=== PATIENT | female | born 1950 | race American Indian/Alaskan Native ===

== ENCOUNTER 2018-10-30 18:11 | Inpatient (IN) | payer MEDICARE ==
--- NOTE | 2018-10-30 18:27 | Emergency Department Report ---
Chief Complaint: Back Pain/Injury Stated Complaint: SERVERE LOWER BACK PAIN Time Seen by Provider: 10/30/18 18:22 - HPI History of Present Illness: This is a 68 y.o. female that presents with low back pain since this morning. Patient states she tried to get out of bed and unable. She applied warm heating pads to lower back and took ibuprofen which increased pain. PMH CAD, HTN, DM, glaucoma, & HLD Patient reports having bladder tightened with mess placement on 10/06/2018. Denies injury, urinary urgency, frequency, dysuria, or abdominal pain. - Exam Vital Signs: Vital Signs 10/30/18 18:22 Temperature 97.5 F L Pulse Rate 62 Respiratory 22 Rate Blood Pressure 137/63 O2 Sat by Pulse 95 Oximetry MSE screening note: Focused history and physical exam performed. Due to findings the following was ordered: UA and XR of L-spine ED Disposition for MSE Condition: Stable
--- NOTE | 2018-10-30 19:28 | XRay Report ---
PROCEDURE: XR SPINE LUMBOSACRAL 2-3V TECHNIQUE: Lumbar spine radiographs, three views. HISTORY: low back pain COMPARISONS: None . FINDINGS: Alignment: Normal . Vertebral body heights/Disk spaces: There is disc space narrowing at L5-S1 with small marginal verteb ral body osteophyte. Fracture(s): None . Facets: Normal . Bone mineralization: Normal . IMPRESSION: Degenerative disc disease at L5-S1 This document is electronically signed by Mino Oconnor MD., October 30 2018 07:27:22 PM ET
[2018-10-30] MEDS ORDERED: TORADOL IM ONE (20:46)
[2018-10-30] MEDS ORDERED: ZOFRAN IM ONE (22:08)
[2018-10-30] MEDS ORDERED: MORPHINE IM ONE (22:08)
[2018-10-30] MEDS ORDERED: DECADRON IM ONE (23:49)
[2018-10-30] MEDS ORDERED: VALIUM PO ONE (23:50)
--- NOTE | 2018-10-30 23:59 | Emergency Department Report ---
<FLOR WALTERS - Last Filed: 10/31/18 01:02> ED Back Pain/Injury HPI - General Chief Complaint: Back Pain/Injury Stated Complaint: SERVERE LOWER BACK PAIN Time Seen by Provider: 10/30/18 18:22 - Related Data Home Medications Medication Instructions Recorded Confirmed Last Taken Amlodipine Besylate [Norvasc] 10 mg PO DAILY 10/31/18 10/31/18 Unknown Aspirin 81 mg PO DAILY 10/31/18 10/31/18 Unknown Atorvastatin Calcium [Lipitor] 40 mg PO QHS 10/31/18 10/31/18 Unknown Calcium Carbonate [Calcium] 600 mg PO TID 10/31/18 10/31/18 Unknown Capsaicin 0.075% [Zostrix Hp 1 applicatio TP TID 10/31/18 10/31/18 Unknown 0.075%] Docusate Sodium [Colace] 100 mg PO BID 10/31/18 10/31/18 Unknown Ergocalciferol [Vitamin D2] 1 tab PO QMONTH 10/31/18 10/31/18 10/20/18 Gabapentin [Neurontin] 100 mg PO BID 10/31/18 10/31/18 Unknown Latanoprost 0.005% [Xalatan 0.005%] 1 drop OP QPM 10/31/18 10/31/18 Unknown Losartan Potassium 100 mg PO DAILY 10/31/18 10/31/18 Unknown Nitroglycerin [Nitrostat] 0.4 mg SL Q5M PRN 10/31/18 10/31/18 Unknown Timolol 0.5% [Timoptic] 1 drops OP BID 10/31/18 10/31/18 Unknown glipiZIDE [Glipizide] 2.5 mg PO BID 10/31/18 10/31/18 Unknown metFORMIN [Glucophage] 500 mg PO BID 10/31/18 10/31/18 Unknown Allergies Allergy/AdvReac Type Severity Reaction Status Date / Time lisinopril Allergy Unknown Verified 10/30/18 18:17 ED Past Medical Hx - Medications Home Medications: Home Medications Medication Instructions Recorded Confirmed Last Taken Type Amlodipine Besylate [Norvasc] 10 mg PO DAILY 10/31/18 10/31/18 Unknown History Aspirin 81 mg PO DAILY 10/31/18 10/31/18 Unknown History Atorvastatin Calcium [Lipitor] 40 mg PO QHS 10/31/18 10/31/18 Unknown History Calcium Carbonate [Calcium] 600 mg PO TID 10/31/18 10/31/18 Unknown History Capsaicin 0.075% [Zostrix Hp 1 applicatio TP TID 10/31/18 10/31/18 Unknown History 0.075%] Docusate Sodium [Colace] 100 mg PO BID 10/31/18 10/31/18 Unknown History Ergocalciferol [Vitamin D2] 1 tab PO QMONTH 10/31/18 10/31/18 10/20/18 History Gabapentin [Neurontin] 100 mg PO BID 10/31/18 10/31/18 Unknown History Latanoprost 0.005% [Xalatan 0.005%] 1 drop OP QPM 10/31/18 10/31/18 Unknown History Losartan Potassium 100 mg PO DAILY 10/31/18 10/31/18 Unknown History Nitroglycerin [Nitrostat] 0.4 mg SL Q5M PRN 10/31/18 10/31/18 Unknown History Timolol 0.5% [Timoptic] 1 drops OP BID 10/31/18 10/31/18 Unknown History glipiZIDE [Glipizide] 2.5 mg PO BID 10/31/18 10/31/18 Unknown History metFORMIN [Glucophage] 500 mg PO BID 10/31/18 10/31/18 Unknown History ED Medical Decision Making - Medical Decision Making I evaluated Mrs. Ambrose. She has history of diabetic neuropathy, diabetes, hypertension. Recent [employer] surgery at [facility] for prolapse of her pelvic organs. She is followed by [facility]. No previous history of back problems or back injury. Thursday morning she awakened with severe lower back pain worse with movement of both legs. She straightened out either leg severe pain. Differential diagnosis includes lumbar degenerative disc disease versus spinal stenosis in the lumbar region. I recommended aggressive IV pain control. Also recommended admission if pain does not resolve. ED Disposition Clinical Impression: Lumbar back pain Degenerative disc disease Qualifiers: Spinal region: lumbar Qualified Code(s): M51.36 - Other intervertebral disc degeneration, lumbar region Disposition: OP ADMIT IP TO THIS HOSP Condition: Stable Instructions: Degenerative Disc Disease (ED), Lumbar Radiculopathy (ED), Lumbar Disc Herniation (ED) Referrals: PRIMARY CARE, [Primary Care Provider] - 3-5 Days <TERRANCE ALSTON - Last Filed: 10/31/18 06:27> ED Back Pain/Injury HPI - General Source: patient Limitations: No Limitations - History of Present Illness Initial Comments: This is a 68 y.o. female that presents with low back pain since this morning. Patient states she tried to get out of bed and unable. She applied warm heating pads to lower back and took ibuprofen which increased pain. PMH CAD, HTN, DM, glaucoma, & HLD Patient reports having bladder tightened with mess placement on 10/06/2018. Denies injury, urinary urgency, frequency, dysuria, or abdominal pain. orthopedic surgery paged for consult, Complaint: back pain Onset/Timin -: days(s), unknown (chronic low back pain for past 10 years with arthralgia ) Similar Symptoms Previously: Yes Place: home Radiation: left leg, right leg Severity: moderate Severity scale (0 -10): 5 Quality: sharp Consistency: constant Improves With: other (position) Worsens With: movement, sitting upright, walking Context: turning/twisting Associated Symptoms: difficulty walking. denies: numbness, difficulty urinating, diaphoresis, incontinence, fever/chills, constipation ED Review of Systems ROS: Stated complaint: SERVERE LOWER BACK PAIN Other details as noted in HPI Constitutional: denies: chills, fever Eyes: denies: eye pain, eye discharge, vision change ENT: denies: ear pain, throat pain Respiratory: denies: cough, shortness of breath, wheezing Cardiovascular: denies: chest pain, palpitations Endocrine: no symptoms reported Gastrointestinal: denies: abdominal pain, nausea, diarrhea Genitourinary: denies: urgency, dysuria, discharge Musculoskeletal: back pain, arthralgia, myalgia Skin: denies: rash, lesions Neurological: denies: headache, weakness, paresthesias Psychiatric: denies: anxiety, depression Hematological/Lymphatic: denies: easy bleeding, easy bruising ED Past Medical Hx - Past Medical History Previous Medical History?: Yes Hx Hypertension: Yes Hx Diabetes: Yes Additional medical history: CAD, hyperlipidema, glacuma, - Surgical History Past Surgical History?: Yes Additional Surgical History: hysterectomy, cataracts, stent in heart, - Social History Smoking Status: Never Smoker Substance Use Type: None ED Physical Exam - General Limitations: No Limitations General appearance: alert, in no apparent distress - Head Head exam: Present: atraumatic, normocephalic - Eye Eye exam: Present: normal appearance, PERRL, EOMI Pupils: Present: normal accommodation - ENT ENT exam: Present: mucous membranes moist - Neck Neck exam: Present: normal inspection, full ROM. Absent: tenderness, meningismus, lymphadenopathy - Expanded Neck Exam Expanded Neck exam: Absent: tenderness (no posterior vertebral point tenderness ), midline deformity, anterior neck swelling, thyroid mass, carotid bruit, tracheal deviation - Respiratory Respiratory exam: Present: normal lung sounds bilaterally. Absent: respiratory distress, wheezes, stridor, chest wall tenderness - Cardiovascular Cardiovascular Exam: Present: regular rate, normal rhythm, normal heart sounds. Absent: systolic murmur, diastolic murmur, rubs, gallop - GI/Abdominal GI/Abdominal exam: Present: soft, normal bowel sounds. Absent: tenderness, bruit, hernia - Rectal Rectal exam: Present: deferred - Extremities Exam Extremities exam: Present: normal inspection, full ROM, normal capillary refill. Absent: tenderness, pedal edema, joint swelling, calf tenderness - Back Exam Back exam: Present: tenderness, muscle spasm, paraspinal tenderness. Absent: CVA tenderness (R), CVA tenderness (L), vertebral tenderness, rash noted - Expanded Back Exam Expanded Back exam: Absent: saddle anesthesia Back exam: Sciatic Notch Tenderness: Left, Right, Positive Straight Leg Raise: Left, Right - Neurological Exam Neurological exam: Present: alert, oriented X3, CN II-XII intact, normal gait, reflexes normal. Absent: motor sensory deficit - Expanded Neurological Exam Expanded Patient oriented to: Present: person, place, time Speech: Present: fluid speech Cranial nerves: EOM's Intact: Normal, Gag Reflex: Normal, Tongue Deviation: Normal, Nystagmus: Normal, Facial Sensation: Normal, Facial Palsy with Forehead Movement: Normal, Facial Palsy without Forehead Movement: Normal Cerebellar function: Finger to Nose: Normal, Heel to Ramos: Normal Upper motor neuron: Roderick Neglect: Normal, Pronator Drift: Normal, Babinski Sign: Normal, Sensory Extinction: Normal Sensory exam: Upper Extremity Light Touch: Normal, Upper Extremity Pin Prick: Normal, Upper Extremity Temperature: Normal, UE 2 Point Discrimination: Normal, Lower Extremity Light Touch: Normal, Lower Extremity Pin Prick: Normal, Lower Extremity Temperature: Normal, LE 2 Point Discrimination: Normal Motor strength exam: RUE: 5, LUE: 5, RLE: 5, LLE: 5 DTR: bicep (R): 2+, bicep (L): 2+, ankle (R): 2+, ankle (L): 2+ Best Eye Response (Wesley): (4) open spontaneously Best Motor Response (Mary): (6) obeys commands Best Verbal Response (Mary): (5) oriented Mary Total: 15 - Psychiatric Psychiatric exam: Present: normal affect, normal mood - Skin Skin exam: Present: warm, dry, intact, normal color. Absent: rash ED Course Vital Signs 10/30/18 10/30/18 10/30/18 18:22 21:09 21:39 Temperature 97.5 F L Pulse Rate 62 Respiratory 22 20 20 Rate Blood Pressure 137/63 Blood Pressure [Right] O2 Sat by Pulse 95 Oximetry 10/30/18 10/30/18 10/31/18 22:37 23:07 01:19 Temperature 100.5 F H Pulse Rate 83 Respiratory 20 20 20 Rate Blood Pressure Blood Pressure 144/72 [Right] O2 Sat by Pulse 96 Oximetry 10/31/18 10/31/18 10/31/18 01:34 01:35 01:40 Temperature Pulse Rate Respiratory 20 20 20 Rate Blood Pressure Blood Pressure [Right] O2 Sat by Pulse 96 Oximetry 10/31/18 10/31/18 10/31/18 02:04 02:35 03:54 Temperature Pulse Rate Respiratory 20 20 20 Rate Blood Pressure Blood Pressure [Right] O2 Sat by Pulse Oximetry 10/31/18 04:24 Temperature Pulse Rate Respiratory 20 Rate Blood Pressure Blood Pressure [Right] O2 Sat by Pulse Oximetry - Reevaluation(s) Reevaluation #1: pain reduced to 8/10 , still too painful to ambulate, pt has ketorlac 30mg, and morphine total of 10mg morphine pain reduced from 20/20 to 8 /10 move is improved but still unable to ambulate, CT : moderate L5-S1 Stenosis , exam: bilat LE radiculpathy. 10/31/18 03:50 10/31/18 03:53 ED Medical Decision Making - Lab Data Result diagrams: 10/31/18 01:15 10/31/18 01:15 - Radiology Data Radiology results: report reviewed, image reviewed Findings [facility] [address] [place] [address] XRay Report Signed Patient: SALEEM AMBROSE MR#: [id number] : 1950 Acct:[id number] Age/Sex: 68 / F ADM Date: 10/30/18 Loc: ED Attending Dr: Ordering Physician: DELANO HAMMONDS Date of Service: 10/30/18 Procedure(s): XR spine lumbosacral 2-3V Accession Number(s): [id number] cc: DELANO HAMMONDS Fluoro Time In Minutes: PROCEDURE: XR SPINE LUMBOSACRAL 2-3V TECHNIQUE: Lumbar spine radiographs, three views. HISTORY: low back pain COMPARISONS: None . FINDINGS: Alignment: Normal . Vertebral body heights/Disk spaces: There is disc space narrowing at L5-S1 with small marginal vertebral body osteophyte. Fracture(s): None . Facets: Normal . Bone mineralization: Normal . IMPRESSION: Degenerative disc disease at L5-S1 This document is electronically signed by Mino Oconnor MD., October 30 2018 07:27:22 PM ET Transcribed By: [facility] Dictated By: SADIQ OCONNOR MD Electronically Authenticated By: SADIQ OCONNOR MD Signed Date/Time: 10/30/181927 DD/ 18 TD/TT: 10/30/181918 - Medical Decision Making lumbar xrays : Degenerative disc disease, pt states pain is 7/10 pos stright leg bilat , there is no weakness, pt states to painful to ambulate ua: meds to this point: ketorlac, mophine, zofran, there is improvement with pain medications this is not caudate equine. Consulted ED attending recommendation continue agressive pain control admit if symptoms not improved, 0552: pt advises pain is 3/10 at this, pain increases to 8/10 with attempted ambulation there is no saddle numbess no loss or decrease in bowel or bladder function, CT Lumbar: Bulging L5-S1, Degenerative Disc Disease, mild to moderate Lumabar Stenosis, plan: admit to hospitalist for pain control, consulted ortho for disc herniation , discussed treatment plan indepth with patient and , both verbalized agreement and understanding of same. 0553: pt care hand off to hospitalist , pt will be admitted to same at this time, pt verbalizes agreement and understanding. Critical care attestation.: If time is entered above; I have spent that time in minutes in the direct care of this critically ill patient, excluding procedure time. ED Disposition Is pt being admited?: Yes Does the pt Need Aspirin: No Time of Disposition: 06:26
[2018-10-31] MEDS ORDERED: BENADRYL IM ONE (00:49)
[2018-10-31] MEDS ORDERED: MORPHINE IV ONE ×2 (01:04→03:47)
[2018-10-31] MEDS ORDERED: ZOFRAN IV ONE ×2 (01:04→03:47)
[2018-10-31] MEDS ORDERED: NORCO 5/325 PO ONE (01:05)
[2018-10-31 01:29] LABS: Basophils % (Auto) 0.3 % (0.0-1.8); Hematocrit 36.6 % (30.3-42.9); Hemoglobin 11.7 gm/dl (10.1-14.3); Lymphocytes # (Auto) 0.8 K/mm3 (1.2-5.4); Lymphocytes % (Auto) 9.5 % (13.4-35.0); Mean Corpuscular HGB Conc 32 % (30-34); Mean Corpuscular Volume 85 fl (79-97); Monocytes # (Auto) 0.1 K/mm3 (0.0-0.8); Monocytes % (Auto) 1.1 % (0.0-7.3); Platelet Count 273 K/mm3 (140-440); Red Blood Count 4.32 M/mm3 (3.65-5.03)
[2018-10-31 02:14] LABS: Albumin 4.3 g/dL (3.9-5); BUN/Creatinine Ratio 15; Blood Urea Nitrogen 15 mg/dL (7-17); Calcium 9.7 mg/dL (8.4-10.2); Hemolysis Index 112
--- NOTE | 2018-10-31 02:27 | Cat Scan Report ---
CT LUMBAR SPINE WO CON CLINICAL INDICATION: Female, 68 years of age. lumbar pain unable to ambulate COMPARISON: Plain films of the lumbar spine from October 30, 2018. TECHNIQUE: Contiguous axial images were obtained. This CT exam was performed using one or more of th e following dose reduction techniques: automated exposure control, adjustment of the mA and/or kV acc ording to patient size, or use of iterative reconstruction technique. Additional sagittal and coronal reformatted images were obtained. FINDINGS: Lumbar vertebral body heights preserved. Mild loss of disc at L4-L5 level. Severe loss of d isc height L5-S1 level with endplate osteophyte. Minimal retrolisthesis of L5 on S1 by 2 to 3 mm. T12-L1 through L2-L3 levels, canal and foramina are patent. L3-L4 level, mild broad-based disc bulge and hypertrophy of ligamentum flavum. Mild facet changes. Mi ld canal stenosis. Mild foraminal narrowing. L4-L5 level, mild facet changes. Mild broad-based disc bulge. Mild canal stenosis. Knro-zh-vjwbhylb b ilateral foraminal narrowing. L5-S1 level, mild broad-based disc bulge with endplate osteophyte. Mild facet changes. Mild/moderate canal stenosis. Moderate to severe bilateral foraminal narrowing. Paraspinal musculature is grossly unremarkable. IMPRESSION: 1. Moderate focal degenerative changes L5-S1 level. Siip-ml-uomcoivo canal stenosis at that level and moderate to severe foraminal narrowing. There is impingement upon the exiting L5 nerve roots which c ould explain bilateral radiculopathy. 2. Mild canal stenosis and [id number]-zh-xvbkdbrk bilateral foraminal narrowing L4-L5 level. 3. Canal and foramina are patent throughout the remainder of the lumbar spine. This document is electronically signed by Keiry Chin DO., October 31 2018 02:25:47 AM ET
[2018-10-31 02:35] LABS: Alanine Aminotransferase 15 units/L (7-56)
[2018-10-31] MEDS ORDERED: ZOFRAN IV PRN (05:08)
--- NOTE | 2018-10-31 05:44 | History and Physical Report ---
History of Present Illness Date of examination: 10/31/18 Date of admission: 10/31/2018 Chief complaint: severe back pain History of present illness: Patient is a 68-year-old female with PMHx of hypertension, CAD status post stent placement 1, hyperlipidemia, DM2, vitamin D deficiency and obesity who presents to the ER with complaints of severe back pain started today around noon. Patient states that the pain started suddenly she was unable to move her legs, she felt a sharp pain on her lower back and she was unable to walk. Patient states that she managed to get in bed, but she couldn't move in the bed. Patient denies any heavy lifting, denies any recent fall, denies any injuries to the back, she denies numbness, denies paresthesias, she decided to come to the ER for evaluation of her back pain. Patient reports that she had a recent hysterectomy in 10/05/2018 and a bladder mesh. Patient had a CT scan of the lumbar spine and the ER, which showed moderate focal changes L5 through S1 mild to moderate canal stenosis at that level and moderate to severe foraminal narrowing, there is impingement upon the existing L5 nerve roots. Mild canal Stenosis and Mild to Moderate Bilateral Foraminal Narrowing L4- L5 Level. Patient was initially treated in the ER, her pain improved, she will be admitted for additional evaluation, orthopedic and neuro will be consulted for her back pain. Past History Past Medical History: CAD, diabetes, hypertension, hyperlipidemia, other (obesity) Past Surgical History: hysterectomy, Other (bladder mesh) Family history: no significant family history Medications and Allergies Allergies Allergy/AdvReac Type Severity Reaction Status Date / Time lisinopril Allergy Unknown Verified 10/30/18 18:17 Home Medications Medication Instructions Recorded Confirmed Last Taken Type Amlodipine Besylate [Norvasc] 10 mg PO DAILY 10/31/18 10/31/18 Unknown History Aspirin 81 mg PO DAILY 10/31/18 10/31/18 Unknown History Atorvastatin Calcium [Lipitor] 40 mg PO QHS 10/31/18 10/31/18 Unknown History Calcium Carbonate [Calcium] 600 mg PO TID 10/31/18 10/31/18 Unknown History Capsaicin 0.075% [Zostrix Hp 1 applicatio TP TID 10/31/18 10/31/18 Unknown History 0.075%] Docusate Sodium [Colace] 100 mg PO BID 10/31/18 10/31/18 Unknown History Ergocalciferol [Vitamin D2] 1 tab PO QMONTH 10/31/18 10/31/18 10/20/18 History Gabapentin [Neurontin] 100 mg PO BID 10/31/18 10/31/18 Unknown History Latanoprost 0.005% [Xalatan 0.005%] 1 drop OU QPM 10/31/18 10/31/18 Unknown History Losartan Potassium 100 mg PO DAILY 10/31/18 10/31/18 Unknown History Nitroglycerin [Nitrostat] 0.4 mg SL Q5M PRN 10/31/18 10/31/18 Unknown History Timolol 0.5% [Timoptic] 1 drops OS BID 10/31/18 10/31/18 Unknown History glipiZIDE [Glipizide] 2.5 mg PO BID 10/31/18 10/31/18 Unknown History metFORMIN [Glucophage] 500 mg PO BID 10/31/18 10/31/18 Unknown History Active Meds: Active Medications Acetaminophen (Tylenol) 650 mg PO Q4H PRN PRN Reason: Pain MILD(1-3)/Fever >100.5/PENG Acetaminophen/Hydrocodone Bitart (Kaplan 5/325) 1 each PO Q6H PRN PRN Reason: Pain, Moderate (4-6) Ondansetron HCl (Zofran) 4 mg IV Q8H PRN PRN Reason: Nausea And Vomiting Sodium Chloride (Sodium Chloride Flush Syringe 10 Ml) 10 ml IV BID RU Sodium Chloride (Sodium Chloride Flush Syringe 10 Ml) 10 ml IV PRN PRN PRN Reason: LINE FLUSH Exam - Constitutional Vitals: Temp Pulse Resp BP Pulse Ox 100.5 F H 83 20 144/72 96 10/31/18 01:19 10/31/18 01:19 10/31/18 04:24 10/31/18 01:19 10/31/18 01:40 General appearance: Present: no acute distress - EENT Eyes: Present: EOM intact ENT: hearing intact - Neck Neck: Present: normal ROM - Respiratory Respiratory effort: normal Respiratory: bilateral: CTA - Cardiovascular Heart Sounds: Present: S1 & S2 - Extremities Extremities: no ischemia, No edema Peripheral Pulses: within normal limits - Abdominal General gastrointestinal: Present: non-tender, non-distended, other (obese) - Integumentary Integumentary: Present: warm, dry - Musculoskeletal Musculoskeletal: generalized weakness (lower extremities) - Psychiatric Psychiatric: appropriate mood/affect - Neurologic Neurologic: moves all extremities Results - Labs CBC & Chem 7: 10/31/18 01:15 10/31/18 01:15 Labs: Laboratory Last Values WBC 8.4 K/mm3 (4.5-11.0) 10/31/18 01:15 RBC 4.32 M/mm3 (3.65-5.03) 10/31/18 01:15 Hgb 11.7 gm/dl (10.1-14.3) 10/31/18 01:15 Hct 36.6 % (30.3-42.9) 10/31/18 01:15 MCV 85 fl (79-97) 10/31/18 01:15 MCH 27 pg (28-32) L 10/31/18 01:15 MCHC 32 % (30-34) 10/31/18 01:15 RDW 16.0 % (13.2-15.2) H 10/31/18 01:15 Plt Count 273 K/mm3 (140-440) 10/31/18 01:15 Lymph % (Auto) 9.5 % (13.4-35.0) L 10/31/18 01:15 Saline % (Auto) 1.1 % (0.0-7.3) 10/31/18 01:15 Eos % (Auto) 0.0 % (0.0-4.3) 10/31/18 01:15 Baso % (Auto) 0.3 % (0.0-1.8) 10/31/18 01:15 Lymph # 0.8 K/mm3 (1.2-5.4) L 10/31/18 01:15 Saline # 0.1 K/mm3 (0.0-0.8) 10/31/18 01:15 Eos # 0.0 K/mm3 (0.0-0.4) 10/31/18 01:15 Baso # 0.0 K/mm3 (0.0-0.1) 10/31/18 01:15 Seg Neutrophils % 89.1 % (40.0-70.0) H 10/31/18 01:15 Seg Neutrophils # 7.5 K/mm3 (1.8-7.7) 10/31/18 01:15 Sodium 139 mmol/L (137-145) 10/31/18 01:15 Potassium 5.0 mmol/L (3.6-5.0) 10/31/18 01:15 Chloride 97.7 mmol/L (98-107) L 10/31/18 01:15 Carbon Dioxide 18 mmol/L (22-30) L 10/31/18 01:15 Anion Gap 28 mmol/L 10/31/18 01:15 BUN 15 mg/dL (7-17) 10/31/18 01:15 Creatinine 1.0 mg/dL (0.7-1.2) 10/31/18 01:15 Estimated GFR > 60 ml/min 10/31/18 01:15 BUN/Creatinine Ratio 15 % 10/31/18 01:15 Glucose 250 mg/dL (65-100) H 10/31/18 01:15 Calcium 9.7 mg/dL (8.4-10.2) 10/31/18 01:15 Total Bilirubin 0.70 mg/dL (0.1-1.2) 10/31/18 01:15 AST 23 units/L (5-40) 10/31/18 01:15 ALT 15 units/L (7-56) 10/31/18 01:15 Alkaline Phosphatase 81 units/L (35-129) 10/31/18 01:15 Total Protein 8.2 g/dL (6.3-8.2) 10/31/18 01:15 Albumin 4.3 g/dL (3.9-5) 10/31/18 01:15 Albumin/Globulin Ratio 1.1 % 10/31/18 01:15 Assessment and Plan Assessment and plan: 1. Moderate focal extension into his changes L5-S1 2. Mild to moderate bilateral foraminal narrowing L4-L5 3. Intractable back pain with radiculopathy (likely due to 12) 4. Hypertension 5. CAD s/p stent placement 1 6. Hyperlipidemia 7. DM type II 8. vitamin D deficiency 9. Obesity Plan: Patient is admitted for intractable back pain Continue pain control Insulin per sliding scale Resume home meds Consult PT/OT to eval Consult/for evaluation Further plan per hospital course Plan of care was discussed with patient, voiced understanding Patient's condition and plan of care discussed with Advance Directives: Yes VTE prophylaxis?: Chemical Plan of care discussed with patient/family: Yes
[2018-10-31 06:02] LABS: Bacteria,Urine 2+ /HPF (Negative); Bilirubin,Urine NEG (Negative); Blood,Urine MOD (Negative); Color,Urine Amber (Yellow); Hyaline Casts,Urine 7 /LPF; Mucus,Urine 3+ /HPF; Urobilinogen,Urine < 2.0 mg/dL (<2.0)
[2018-10-31 06:04] LABS: Protein,Urine >500 mg/dL (Negative)
[2018-10-31] MEDS ORDERED: ROCEPHIN/NS 1 GM/50 ML 1 GM/50 ML BAG IV ONE ×2 (06:29→06:56)
[2018-10-31] MEDS ORDERED: NITROSTAT SL PRN (07:17)
[2018-10-31] MEDS ORDERED: D50W (25GM) Syringe IV PRN (07:21)
[2018-10-31] MEDS ORDERED: NON-FORMULARY (Calcium Carbonate [Calcium] 600 MG) PO SCH (08:00)
[2018-10-31] MEDS ORDERED: NON-FORMULARY (Losartan Potassium [Losartan Potassium] 100 MG) PO SCH (10:00)
[2018-10-31] MEDS ORDERED: NEURONTIN PO SCH ×2 (10:00→14:00)
[2018-10-31] MEDS ORDERED: GLUCOTROL PO SCH (10:00)
[2018-10-31] MEDS: HumaLOG SUB-Q SCH ×4 (10:19→21:56)
--- NOTE | 2018-10-31 12:14 | Event Note ---
Date: 10/31/18 patient seen and examined presented with back pain, follow PT eval and ortho recommendation
[2018-10-31] MEDS: NORCO 5/325 PO PRN (14:22)
[2018-10-31] MEDS: CALCIUM CARBONATE PO SCH ×2 (14:28→23:34)
[2018-10-31] MEDS: ZOSTRIX HP TP SCH ×2 (14:29→23:37)
[2018-10-31] MEDS: GLUCOPHAGE PO SCH ×2 (14:29→17:50)
[2018-10-31] MEDS: NORVASC PO SCH (14:30)
[2018-10-31] MEDS: BABY ASPIRIN PO SCH (14:30)
[2018-10-31] MEDS: GLUCOTROL PO SCH ×2 (14:30→17:51)
[2018-10-31] MEDS: COLACE PO SCH ×2 (14:30→21:48)
[2018-10-31] MEDS: COZAAR PO SCH (14:30)
[2018-10-31] MEDS: SODIUM CHLORIDE FLUSH SYRINGE 10 ML IV SCH ×2 (14:30→21:51)
[2018-10-31] MEDS: TIMOPTIC OS SCH ×2 (14:31→23:37)
[2018-10-31] MEDS: FLEXERIL PO PRN (17:36)
[2018-10-31] MEDS: TYLENOL PO PRN (21:49)
[2018-10-31] MEDS: LIDODERM 5% TD SCH (22:06)
[2018-11-01] MEDS: NEURONTIN PO SCH ×4 (00:26→22:41)
[2018-11-01] MEDS: FLEXERIL PO PRN ×3 (02:15→20:07)
[2018-11-01] MEDS: NORCO 5/325 PO PRN ×4 (02:15→17:37)
[2018-11-01 06:20] LABS: Bilirubin,Urine NEG (Negative); Blood,Urine MOD (Negative); Color,Urine Yellow (Yellow); Mucus,Urine FEW /HPF; Urobilinogen,Urine < 2.0 mg/dL (<2.0)
[2018-11-01] MEDS: CALCIUM CARBONATE PO SCH ×3 (08:40→22:37)
[2018-11-01] MEDS: GLUCOPHAGE PO SCH ×2 (08:41→17:44)
[2018-11-01] MEDS: ZOSTRIX HP TP SCH ×3 (08:42→22:39)
[2018-11-01] MEDS: HumaLOG SUB-Q SCH ×5 (08:43→22:42)
[2018-11-01] MEDS: GLUCOTROL PO SCH ×2 (08:51→17:44)
[2018-11-01] MEDS: COZAAR PO SCH (09:23)
[2018-11-01] MEDS: NORVASC PO SCH (09:24)
[2018-11-01] MEDS: COLACE PO SCH ×2 (09:24→22:39)
[2018-11-01] MEDS: TIMOPTIC OS SCH ×2 (09:24→22:38)
[2018-11-01] MEDS: LIDODERM 5% TD SCH (09:26)
[2018-11-01] MEDS: SODIUM CHLORIDE FLUSH SYRINGE 10 ML IV SCH ×2 (09:26→22:40)
[2018-11-01] MEDS: BABY ASPIRIN PO SCH (09:26)
--- NOTE | 2018-11-01 16:37 | Progress Note ---
Assessment and Plan 1. Moderate focal degenerative changes L5-S1 2. Moderate to severe bilateral foraminal narrowing L4-L5 3. Intractable back pain with radiculopathy (likely due to impingement L5 nerveroot ) 4. Hypertension 5. CAD s/p stent placement 1 6. Hyperlipidemia 7. DM type II 8. vitamin D deficiency 9. Obesity Plan: Patient is admitted for intractable back pain Continue pain control with lidocaine patch/lortab as needed/flexiril Insulin per sliding scale Resumec home meds Consulted PT/OT to eval -pending Consulted ortho for evaluation - will see the patient tomorrow Further plan per hospital course Plan of care was discussed with patient, voiced understanding Brief history: Patient is a 68-year-old female with PMHx of hypertension, CAD status post stent placement 1, hyperlipidemia, DM2, vitamin D deficiency and obesity who presents to the ER with complaints of severe back pain. Patient had a CT scan of the lumbar spine and the ER, which showed moderate focal changes L5 through S1 mild to moderate canal stenosis at that level and moderate to severe foraminal narrowing, there is impingement upon the existing L5 nerve roots. Patient was initially treated in the ER, she was admitted for additional evaluation, orthopedic/PT consulted for her back pain. Radiology: CT Lumber spine w/o contrast: 1. Moderate focal degenerative changes L5-S1 level. Nzck-en-pnoibpmw canal stenosis at that level and moderate to severe foraminal narrowing. There is impingement upon the exiting L5 nerve roots which could explain bilateral radic ulopathy. 2. Mild canal stenosis and vlag-au-fsebiscn bilateral foraminal narrowing L4-L5 level. 3. Canal and foramina are patent throughout the remainder of the lumbar spine. Lumbosacral spine xry: Degenerative disc disease at L5-S1 Subjective Date of service: 11/01/18 Interval history: Patient seen and examined continue to c/o severe back pain and unable to move from bed PT eval and ortho eval pending Objective - Exam Narrative Exam: General appearance: Present: no acute distress - EENT Eyes: Present: EOM intact ENT: hearing intact - Neck Neck: Present: normal ROM - Respiratory Respiratory effort: normal Respiratory: bilateral: CTA - Cardiovascular Heart Sounds: Present: S1 & S2 - Extremities Extremities: no ischemia, No edema Peripheral Pulses: within normal limits - Abdominal General gastrointestinal: Present: non-tender, non-distended, other (obese) - Integumentary Integumentary: Present: warm, dry - Musculoskeletal Musculoskeletal: generalized weakness (b/l lower extremities) - Psychiatric Psychiatric: appropriate mood/affect - Neurologic Neurologic: limited lower extremities movement due to severe back pain - Constitutional Vitals: Vital Signs - 12hr 11/01/18 11/01/18 11/01/18 07:37 09:00 09:23 Temperature 98.7 F Pulse Rate 79 79 Respiratory 20 Rate Respiratory 20 Rate [Back] Blood Pressure 160/83 160/83 O2 Sat by Pulse 85 Oximetry 11/01/18 11/01/18 11/01/18 09:24 10:00 13:20 Temperature 99.4 F Pulse Rate 76 76 Respiratory 20 20 Rate Respiratory Rate [Back] Blood Pressure 160/83 119/55 O2 Sat by Pulse 90 Oximetry 11/01/18 11/01/18 13:21 14:48 Temperature Pulse Rate 78 Respiratory 20 Rate Respiratory Rate [Back] Blood Pressure O2 Sat by Pulse 91 Oximetry - Labs CBC & Chem 7: 10/31/18 01:15 10/31/18 01:15 Labs: Abnormal lab results 10/31/18 11/01/18 11/01/18 Range/Units 21:57 06:00 11:47 POC Glucose 138 H 201 H (70-105) Ur Specific [place] 1.038 H (1.003-1.030) Urine WBC (Auto) 7.0 H (0.0-6.0) /HPF
[2018-11-01] MEDS: LATANOPROST 0.005% OU SCH ×2 (17:39→19:43)
[2018-11-01] MEDS: TYLENOL PO PRN (20:07)
[2018-11-02] MEDS: NORCO 5/325 PO PRN ×2 (00:56→08:08)
[2018-11-02] MEDS: NEURONTIN PO SCH ×3 (05:33→22:00)
[2018-11-02] MEDS: TYLENOL PO PRN ×3 (05:34→21:59)
[2018-11-02] MEDS: FLEXERIL PO PRN (05:34)
[2018-11-02] MEDS: GLUCOTROL PO SCH ×2 (08:09→19:17)
[2018-11-02] MEDS: GLUCOPHAGE PO SCH ×2 (08:09→19:19)
[2018-11-02] MEDS: HumaLOG SUB-Q SCH ×4 (08:09→22:01)
[2018-11-02] MEDS: CALCIUM CARBONATE PO SCH ×3 (08:10→21:00)
[2018-11-02] MEDS: ZOSTRIX HP TP SCH ×3 (08:58→21:02)
[2018-11-02] MEDS: COZAAR PO SCH (10:18)
[2018-11-02] MEDS: NORVASC PO SCH (10:18)
[2018-11-02] MEDS: LIDODERM 5% TD SCH (10:29)
[2018-11-02] MEDS: TIMOPTIC OS SCH ×2 (10:30→22:47)
[2018-11-02] MEDS: COLACE PO SCH ×2 (10:30→22:00)
[2018-11-02] MEDS: BABY ASPIRIN PO SCH (10:30)
[2018-11-02] MEDS: SODIUM CHLORIDE FLUSH SYRINGE 10 ML IV SCH ×2 (10:31→22:01)
--- NOTE | 2018-11-02 12:01 | Progress Note ---
Assessment and Plan 1. Moderate focal degenerative changes L5-S1 2. Moderate to severe bilateral foraminal narrowing L4-L5 3. Intractable back pain with radiculopathy (likely due to impingement L5 nerveroot ) 4. Hypertension 5. CAD s/p stent placement 1 6. Hyperlipidemia 7. DM type II 8. vitamin D deficiency 9. Obesity Plan: Patient is admitted for intractable back pain Continue pain control with lidocaine patch/lortab as needed/flexiril Insulin per sliding scale, Resumed home meds Consulted PT/OT to eval -pending Consulted ortho for evaluation - recommended PT for heat, U/S and massage treatments, back brace, muscle relaxants and pain meds Plan of care was discussed with patient, voiced understanding Brief history: Patient is a 68-year-old female with PMHx of hypertension, CAD status post stent placement 1, hyperlipidemia, DM2, vitamin D deficiency and obesity who presents to the ER with complaints of severe back pain. Patient had a CT scan of the lumbar spine and the ER, which showed moderate focal changes L5 through S1 mild to moderate canal stenosis at that level and moderate to severe foraminal narrowing, there is impingement upon the existing L5 nerve roots. Patient was initially treated in the ER, she was admitted for additional evaluation, orthopedic/PT consulted for her back pain. Radiology: CT Lumber spine w/o contrast: 1. Moderate focal degenerative changes L5-S1 level. Sjzj-co-rlfqvtlm canal stenosis at that level and moderate to severe foraminal narrowing. There is impingement upon the exiting L5 nerve roots which could explain bilateral radiculopathy. 2. Mild canal stenosis and dnzn-cd-ouafcndy bilateral foraminal narrowing L4-L5 level. 3. Canal and foramina are patent throughout the remainder of the lumbar spine. Lumbosacral spine xry: Degenerative disc disease at L5-S1 Subjective Date of service: 11/02/18 Interval history: Patient seen and examined continue to c/o severe back pain and unable to move from bed PT eval pending Objective - Exam Narrative Exam: General appearance: Present: no acute distress - EENT Eyes: Present: EOM intact ENT: hearing intact - Neck Neck: Present: normal ROM - Respiratory Respiratory effort: normal Respiratory: bilateral: CTA - Cardiovascular Heart Sounds: Present: S1 & S2 - Extremities Extremities: no ischemia, No edema Peripheral Pulses: within normal limits - Abdominal General gastrointestinal: Present: non-tender, non-distended, other (obese) - Integumentary Integumentary: Present: warm, dry - Musculoskeletal Musculoskeletal: generalized weakness (b/l lower extremities) - Psychiatric Psychiatric: appropriate mood/affect - Neurologic Neurologic: limited lower extremities movement due to severe back pain - Constitutional Vitals: Vital Signs - 12hr 11/02/18 11/02/18 11/02/18 01:57 07:39 10:18 Temperature 98.5 F 98.0 F Pulse Rate 66 70 70 Respiratory 20 20 Rate Blood Pressure 117/65 112/49 112/49 O2 Sat by Pulse 94 92 Oximetry - Labs CBC & Chem 7: 10/31/18 01:15 10/31/18 01:15 Labs: Abnormal lab results 11/01/18 11/01/18 11/02/18 Range/Units 17:49 21:29 07:12 POC Glucose 129 H 145 H 176 H (70-105)
--- NOTE | 2018-11-02 14:07 | Consultation ---
History of Present Illness - [facility] Consult date: 11/02/18 Consult reason: low back pain History of present illness: 68 y/o female with c/o severe low back pain denies injury states started gradually and became worse over time, denies radicular symptoms... Past History Past Medical History: CAD, diabetes, hypertension, hyperlipidemia, other (obesity) Past Surgical History: hysterectomy, Other (bladder mesh) Family history: no significant family history Medications and Allergies Allergies Allergy/AdvReac Type Severity Reaction Status Date / Time lisinopril Allergy Unknown Verified 10/30/18 18:17 Home Medications Medication Instructions Recorded Confirmed Last Taken Type Amlodipine Besylate [Norvasc] 10 mg PO DAILY 10/31/18 10/31/18 Unknown History Aspirin 81 mg PO DAILY 10/31/18 10/31/18 Unknown History Atorvastatin Calcium [Lipitor] 40 mg PO QHS 10/31/18 10/31/18 Unknown History Calcium Carbonate [Calcium] 600 mg PO TID 10/31/18 10/31/18 Unknown History Capsaicin 0.075% [Zostrix Hp 1 applicatio TP TID 10/31/18 10/31/18 Unknown History 0.075%] Docusate Sodium [Colace CAP] 100 mg PO BID 10/31/18 10/31/18 Unknown History Ergocalciferol [Vitamin D2] 1 tab PO QMONTH 10/31/18 10/31/18 10/20/18 History Latanoprost 0.005% 1 drop OU QPM 10/31/18 10/31/18 Unknown History Losartan Potassium 100 mg PO DAILY 10/31/18 10/31/18 Unknown History Nitroglycerin [Nitrostat] 0.4 mg SL Q5M PRN 10/31/18 10/31/18 Unknown History Timolol 0.5% [Timoptic] 1 drops OS BID 10/31/18 10/31/18 Unknown History glipiZIDE [Glipizide] 2.5 mg PO BID 10/31/18 10/31/18 Unknown History metFORMIN [Glucophage] 500 mg PO BID 10/31/18 10/31/18 Unknown History Cyclobenzaprine [Flexeril 10 MG 10 mg PO Q8H PRN #20 tablet 11/05/18 Unknown Rx TAB] Gabapentin [Neurontin] 600 mg PO Q8HR #30 capsule 11/05/18 Unknown Rx Lidocaine [Lidocare] 1 each TP DAILY PRN #14 adh..patch 11/05/18 Unknown Rx oxyCODONE /ACETAMINOPHEN [Percocet 1 tab PO Q4H PRN #14 tablet 11/05/18 Unknown Rx 5/325 mg] Active Meds: Active Medications Acetaminophen (Tylenol) 650 mg PO Q4H PRN PRN Reason: Pain MILD(1-3)/Fever >100.5/PENG Last Admin: 11/02/18 13:12 Dose: 650 mg Documented by: Acetaminophen/Hydrocodone Bitart (Dexter 5/325) 2 each PO Q6H PRN PRN Reason: Pain, Moderate (4-6) Last Admin: 11/02/18 08:08 Dose: 2 each Documented by: Amlodipine Besylate (Norvasc) 10 mg PO DAILY [facility] Last Admin: 11/02/18 10:18 Dose: Not Given Documented by: Aspirin (Baby Aspirin) 81 mg PO DAILY [facility] Last Admin: 11/02/18 10:30 Dose: 81 mg Documented by: Atorvastatin Calcium (Lipitor) 40 mg PO QHS [facility] Last Admin: 11/01/18 22:38 Dose: 40 mg Documented by: Calcium Carbonate/Glycine (Calcium Carbonate) 648 mg PO TID [facility] Last Admin: 11/02/18 13:11 Dose: 648 mg Documented by: Capsaicin (Zostrix Hp) 1 applic TP TID [facility] Last Admin: 11/02/18 13:15 Dose: 1 applic Documented by: Cyclobenzaprine HCl (Flexeril) 10 mg PO Q8H PRN PRN Reason: Muscle Spasm Last Admin: 11/02/18 05:34 Dose: 10 mg Documented by: Dextrose (D50w (25gm) Syringe) 50 ml IV PRN PRN PRN Reason: Hypoglycemia Docusate Sodium (Colace) 100 mg PO BID [facility] Last Admin: 11/02/18 10:30 Dose: 100 mg Documented by: Ergocalciferol (Vitamin D2) 50,000 unit PO QMONTH [facility] Gabapentin (Neurontin) 300 mg PO Q8HR [facility] Last Admin: 11/02/18 13:15 Dose: 300 mg Documented by: Glipizide (Glucotrol) 2.5 mg PO BIDDIAB [facility] Last Admin: 11/02/18 08:09 Dose: 2.5 mg Documented by: Levofloxacin/Dextrose (Levaquin 750mg/150ml) 750 mg in 150 mls @ 100 mls/hr IV Q24HR [facility]; Protocol Insulin Human Lispro (Humalog) 0 unit SUB-Q ACHS [facility]; Protocol Last Admin: 11/02/18 13:11 Dose: Not Given Documented by: Latanoprost (Latanoprost 0.005%) 1 drops OU QPM [facility] Last Admin: 11/01/18 19:43 Dose: Not Given Documented by: Lidocaine (Lidoderm 5%) 1 each TD QDAY [facility] Last Admin: 11/02/18 10:29 Dose: 1 each Documented by: Losartan Potassium (Cozaar) 100 mg PO QDAY [facility] Last Admin: 11/02/18 10:18 Dose: Not Given Documented by: Metformin HCl (Glucophage) 500 mg PO BIDDIAB [facility] Last Admin: 11/02/18 08:09 Dose: 500 mg Documented by: Nitroglycerin (Nitrostat) 0.4 mg SL Q5M PRN PRN Reason: Chest Pain Ondansetron HCl (Zofran) 4 mg IV Q8H PRN PRN Reason: Nausea And Vomiting Oxycodone/Acetaminophen (Percocet 5/325) 1 tab PO Q4H PRN PRN Reason: Pain, Moderate (4-6) Sodium Chloride (Sodium Chloride Flush Syringe 10 Ml) 10 ml IV BID [facility] Last Admin: 11/02/18 10:31 Dose: 10 ml Documented by: Sodium Chloride (Sodium Chloride Flush Syringe 10 Ml) 10 ml IV PRN PRN PRN Reason: LINE FLUSH Timolol Maleate (Timoptic) 1 drops OS BID [facility] Last Admin: 11/02/18 10:30 Dose: 1 drops Documented by: Tizanidine HCl (Zanaflex) 8 mg PO Q8H [facility] Physical Examination - Physical exam Narrative exam: On physical examination significant musculoskeletal findings were placed to the spine and lower extremities at the lumbar spine patient is noted to have tenderness across the lower lumbar segment with spasms present there is also decreased active range of motion especially flexion and lateral rotation straight leg raise was negative deep tendon reflexes were equal and strength was [address] scan done of the lumbar spine was reviewed by me and show evidence of moderate degenerative disc disease and facet arthropathy at multiple levels there is a mild central canal stenosis Assessment and Plan Low back pain recommend - PT for heat,U/S and massage treatments back brace, muscle relaxants and pain meds
[2018-11-02] MEDS: LEVAQUIN 750MG/150ML 750 MG/150 ML BAG IV SCH (16:07)
[2018-11-02] MEDS: ZANAFLEX PO SCH (16:08)
[2018-11-02] MEDS: SODIUM CHLORIDE FLUSH SYRINGE 10 ML IV PRN (16:08)
[2018-11-02 16:52] LABS: Bacteria,Urine 1+ /HPF (Negative); Bilirubin,Urine NEG (Negative); Blood,Urine MOD (Negative); Color,Urine Amber (Yellow); Mucus,Urine 1+ /HPF; Sperm,Urine FEW /HPF (NP); Urobilinogen,Urine < 2.0 mg/dL (<2.0)
[2018-11-02] MEDS: PERCOCET 5/325 PO PRN (17:13)
[2018-11-02] MEDS: LATANOPROST 0.005% OU SCH (19:16)
[2018-11-03] MEDS: ZANAFLEX PO SCH ×3 (00:38→18:00)
[2018-11-03] MEDS: PERCOCET 5/325 PO PRN ×2 (00:59→09:06)
[2018-11-03] MEDS: NEURONTIN PO SCH ×3 (06:30→21:43)
[2018-11-03] MEDS: HumaLOG SUB-Q SCH ×4 (09:04→21:51)
[2018-11-03] MEDS: LIDODERM 5% TD SCH (09:05)
[2018-11-03] MEDS: GLUCOTROL PO SCH ×2 (09:06→17:58)
[2018-11-03] MEDS: BABY ASPIRIN PO SCH (09:06)
[2018-11-03] MEDS: COLACE PO SCH ×2 (09:06→21:44)
[2018-11-03] MEDS: GLUCOPHAGE PO SCH ×2 (09:07→17:58)
[2018-11-03] MEDS: ZOSTRIX HP TP SCH ×3 (09:07→20:17)
[2018-11-03] MEDS: CALCIUM CARBONATE PO SCH ×3 (09:07→20:17)
[2018-11-03] MEDS: TIMOPTIC OS SCH ×2 (09:08→21:50)
[2018-11-03] MEDS: COZAAR PO SCH (09:16)
[2018-11-03] MEDS: NORVASC PO SCH (09:17)
[2018-11-03] MEDS: SODIUM CHLORIDE FLUSH SYRINGE 10 ML IV SCH ×2 (09:19→21:43)
--- NOTE | 2018-11-03 12:25 | Progress Note ---
Assessment and Plan 1. Moderate focal degenerative changes L5-S1 2. Moderate to severe bilateral foraminal narrowing L4-L5 3. Intractable back pain with radiculopathy (likely due to impingement L5 nerveroot ) 4. Hypertension 5. CAD s/p stent placement 1 6. Hyperlipidemia 7. DM type II 8. vitamin D deficiency 9. Obesity Plan: Patient is admitted for intractable back pain Continue pain control with lidocaine patch/lortab as needed/flexiril Insulin per sliding scale, Resumed home meds Consulted PT/OT to eval -pending Consulted ortho for evaluation - recommended PT for heat, U/S and massage treatments, back brace, muscle relaxants and pain meds Plan of care was discussed with patient, voiced understanding Discharge pending on PT recommendation Brief history: Patient is a 68-year-old female with PMHx of hypertension, CAD status post stent placement 1, hyperlipidemia, DM2, vitamin D deficiency and obesity who presents to the ER with complaints of severe back pain. Patient had a CT scan of the lumbar spine and the ER, which showed moderate focal changes L5 through S1 mild to moderate canal stenosis at that level and moderate to severe foraminal narrowing, there is impingement upon the existing L5 nerve roots. Patient was initially treated in the ER, she was admitted for additional evaluation, orthopedic/PT consulted for her back pain. Radiology: CT Lumber spine w/o contrast: 1. Moderate focal degenerative changes L5-S1 level. Zawr-ix-gcdfpfqi canal stenosis at that level and moderate to severe foraminal narrowing. There is impingement upon the exiting L5 nerve roots which could explain bilateral radiculopathy. 2. Mild canal stenosis and ppgu-yp-kycmicij bilateral foraminal narrowing L4-L5 level. 3. Canal and foramina are patent throughout the remainder of the lumbar spine. Lumbosacral spine xry: Degenerative disc disease at L5-S1 Subjective Date of service: 11/03/18 Interval history: Patient seen and examined continue to c/o severe back pain and unable to move from bed PT eval pending as she is unable to participate due to pain Objective - Exam Narrative Exam: General appearance: Present: no acute distress - EENT Eyes: Present: EOM intact ENT: hearing intact - Neck Neck: Present: normal ROM - Respiratory Respiratory effort: normal Respiratory: bilateral: CTA - Cardiovascular Heart Sounds: Present: S1 & S2 - Extremities Extremities: no ischemia, No edema Peripheral Pulses: within normal limits - Abdominal General gastrointestinal: Present: non-tender, non-distended, other (obese) - Integumentary Integumentary: Present: warm, dry - Musculoskeletal Musculoskeletal: generalized weakness (b/l lower extremities) - Psychiatric Psychiatric: appropriate mood/affect - Neurologic Neurologic: limited lower extremities movement due to severe back pain - Constitutional Vitals: Vital Signs - 12hr 11/03/18 11/03/18 11/03/18 00:57 00:59 01:59 Temperature 98.3 F Pulse Rate 65 Respiratory 18 18 16 Rate Blood Pressure 103/58 O2 Sat by Pulse 95 Oximetry 11/03/18 11/03/18 11/03/18 02:26 02:32 02:33 Temperature 98.6 F Pulse Rate 47 L Respiratory 20 Rate Blood Pressure 82/42 80/40 O2 Sat by Pulse 94 Oximetry 11/03/18 11/03/18 11/03/18 07:40 09:16 10:00 Temperature 99.0 F Pulse Rate 55 L 55 L Respiratory 18 Rate Blood Pressure 102/47 102/47 O2 Sat by Pulse 92 92 Oximetry - Labs CBC & Chem 7: 10/31/18 01:15 10/31/18 01:15 Labs: Abnormal lab results 11/02/18 11/03/18 Range/Units 16:00 11:23 POC Glucose 151 H (70-105) Ur Specific [place] 1.039 H (1.003-1.030) Urine WBC (Auto) 7.0 H (0.0-6.0) /HPF
[2018-11-03] MEDS: SODIUM CHLORIDE FLUSH SYRINGE 10 ML IV PRN (16:36)
[2018-11-03] MEDS: LEVAQUIN 750MG/150ML 750 MG/150 ML BAG IV SCH (16:36)
[2018-11-03] MEDS: LATANOPROST 0.005% OU SCH (18:08)
[2018-11-03] MEDS: TYLENOL PO PRN (19:58)
[2018-11-03] MEDS: NORCO 5/325 PO PRN (21:46)
[2018-11-04] MEDS: ZANAFLEX PO SCH ×4 (01:12→23:30)
[2018-11-04] MEDS: NEURONTIN PO SCH ×3 (05:16→21:16)
[2018-11-04] MEDS: HumaLOG SUB-Q SCH ×4 (08:07→23:39)
[2018-11-04] MEDS: NORVASC PO SCH (10:35)
[2018-11-04] MEDS: LIDODERM 5% TD SCH (10:35)
[2018-11-04] MEDS: COLACE PO SCH ×2 (10:36→21:17)
[2018-11-04] MEDS: COZAAR PO SCH (10:36)
[2018-11-04] MEDS: PERCOCET 5/325 PO PRN ×2 (10:36→15:33)
[2018-11-04] MEDS: BABY ASPIRIN PO SCH (10:36)
[2018-11-04] MEDS: ZOSTRIX HP TP SCH ×3 (10:37→20:55)
[2018-11-04] MEDS: TIMOPTIC OS SCH ×2 (10:37→21:15)
[2018-11-04] MEDS: CALCIUM CARBONATE PO SCH ×3 (10:37→20:56)
[2018-11-04] MEDS: SODIUM CHLORIDE FLUSH SYRINGE 10 ML IV SCH ×2 (10:38→21:17)
[2018-11-04] MEDS: GLUCOTROL PO SCH ×2 (10:42→17:10)
[2018-11-04] MEDS: GLUCOPHAGE PO SCH ×2 (10:43→17:11)
[2018-11-04] MEDS ORDERED: LEVAQUIN PO SCH (12:00)
--- NOTE | 2018-11-04 13:47 | Progress Note ---
Assessment and Plan 1. Moderate focal degenerative changes L5-S1 2. Moderate to severe bilateral foraminal narrowing L4-L5 3. Intractable back pain with radiculopathy (likely due to impingement L5 nerveroot ) 4. Hypertension 5. CAD s/p stent placement 1 6. Hyperlipidemia 7. DM type II 8. vitamin D deficiency 9. Obesity Plan: Patient is admitted for intractable back pain Continue pain control with lidocaine patch/lortab as needed/flexiril Insulin per sliding scale, Resumed home meds Consulted PT/OT to eval -pending Consulted ortho for evaluation - recommended PT for heat, U/S and massage treatments, back brace, muscle relaxants and pain meds Plan of care was discussed with patient, voiced understanding Need MIESHA per PT recommendation Brief history: Patient is a 68-year-old female with PMHx of hypertension, CAD status post stent placement 1, hyperlipidemia, DM2, vitamin D deficiency and obesity who presents to the ER with complaints of severe back pain. Patient had a CT scan of the lumbar spine and the ER, which showed moderate focal changes L5 through S1 mild to moderate canal stenosis at that level and moderate to severe foraminal na rrowing, there is impingement upon the existing L5 nerve roots. Patient was initially treated in the ER, she was admitted for additional evaluation, orthopedic/PT consulted for her back pain. Radiology: CT Lumber spine w/o contrast: 1. Moderate focal degenerative changes L5-S1 level. Skio-mg-ewzznnnb canal stenosis at that level and moderate to severe foraminal narrowing. There is impingement upon the exiting L5 nerve roots which could explain bilateral radiculopathy. 2. Mild canal stenosis and cetg-dr-dfipgfgw bilateral foraminal narrowing L4-L5 level. 3. Canal and foramina are patent throughout the remainder of the lumbar spine. Lumbosacral spine xry: Degenerative disc disease at L5-S1 Subjective Date of service: 11/04/18 Interval history: Patient seen and examined continue to c/o severe back pain and unable to move from bed PT recommended MIESHA Objective - Exam Narrative Exam: General appearance: Present: no acute distress - EENT Eyes: Present: EOM intact ENT: hearing intact - Neck Neck: Present: normal ROM - Respiratory Respiratory effort: normal Respiratory: bilateral: CTA - Cardiovascular Heart Sounds: Present: S1 & S2 - Extremities Extremities: no ischemia, No edema Peripheral Pulses: within normal limits - Abdominal General gastrointestinal: Present: non-tender, non-distended, other (obese) - Integumentary Integumentary: Present: warm, dry - Musculoskeletal Musculoskeletal: generalized weakness (b/l lower extremities) - Psychiatric Psychiatric: appropriate mood/affect - Neurologic Neurologic: limited lower extremities movement due to severe back pain - Constitutional Vitals: Vital Signs - 12hr 11/04/18 11/04/18 11/04/18 02:04 02:09 07:41 Temperature 98.8 F Pulse Rate 98 H 47 L 65 Respiratory 20 Rate Blood Pressure 95/44 138/64 O2 Sat by Pulse 81 L 92 94 Oximetry 11/04/18 11/04/18 10:00 10:35 Temperature Pulse Rate 65 Respiratory 20 Rate Blood Pressure 138/64 O2 Sat by Pulse 94 Oximetry - Labs CBC & Chem 7: 10/31/18 01:15 10/31/18 01:15 Labs: Abnormal lab results 11/03/18 11/04/18 Range/Units 21:55 11:20 POC Glucose 64 L 125 H (70-105)
[2018-11-04] MEDS: LEVAQUIN 750MG/150ML 750 MG/150 ML BAG IV SCH (14:17)
[2018-11-04] MEDS: LATANOPROST 0.005% OU SCH (17:21)
[2018-11-04] MEDS: NORCO 5/325 PO PRN (21:14)
[2018-11-05] MEDS: NEURONTIN PO SCH ×3 (05:18→22:40)
[2018-11-05] MEDS: GLUCOPHAGE PO SCH ×3 (08:08→16:39)
[2018-11-05] MEDS: HumaLOG SUB-Q SCH ×4 (08:09→23:37)
[2018-11-05] MEDS: CALCIUM CARBONATE PO SCH ×3 (08:09→20:21)
[2018-11-05] MEDS: PERCOCET 5/325 PO PRN ×3 (08:29→23:03)
[2018-11-05] MEDS: GLUCOTROL PO SCH ×2 (08:32→16:39)
[2018-11-05] MEDS: ZANAFLEX PO SCH ×2 (08:32→16:42)
[2018-11-05] MEDS: ZOSTRIX HP TP SCH ×3 (09:23→20:24)
[2018-11-05] MEDS: LIDODERM 5% TD SCH (09:24)
[2018-11-05] MEDS: LEVAQUIN 750MG/150ML 750 MG/150 ML BAG IV SCH (09:25)
[2018-11-05] MEDS: COZAAR PO SCH (09:26)
[2018-11-05] MEDS: NORVASC PO SCH (09:27)
[2018-11-05] MEDS: COLACE PO SCH ×2 (09:27→22:40)
[2018-11-05] MEDS: BABY ASPIRIN PO SCH (09:28)
[2018-11-05] MEDS: SODIUM CHLORIDE FLUSH SYRINGE 10 ML IV SCH ×2 (09:28→23:03)
[2018-11-05] MEDS: TIMOPTIC OS SCH ×2 (10:46→23:03)
--- NOTE | 2018-11-05 12:57 | Discharge Summary ---
Providers - Providers Date of Admission: 10/31/18 06:13 Date of discharge: 11/05/18 Attending physician: JULIUS BOSWELL 10/31/18 05:38 Physical Therapy Evaluation and Treat [CONS] Routine Comment: Reason For Exam: pack pain, inability to ambulates Mode of Transport?: Wheelchair Weight bearing status?: Partial wt bearing Assistive devices?: Yes 10/31/18 05:41 Consult to Physician [CONS] Stat Comment: Spoke with Dr. Hines @ 0910 Consulting Provider: RODRIGUEZ HINES Physician Instructions: Reason For Exam: severe lumbar pain Primary care physician: SR[employer] ADMINISTRATOR Hospitalization Condition: Stable Hospital course: Brief history: Patient is a 68-year-old female with PMHx of hypertension, CAD status post stent placement 1, hyperlipidemia, DM2, vitamin D deficiency and obesity who presents to the ER with complaints of severe back pain. Patient had a CT scan of the lumbar spine and the ER, which showed moderate focal changes L5 through S1 mild to moderate canal stenosis at that level and moderate to severe foraminal narrowing, there is impingement upon the existing L5 nerve roots. Patient was initially treated in the ER, she was admitted for additional evaluation, orthopedic/PT consulted for her back pain. Radiology: CT Lumber spine w/o contrast: 1. Moderate focal degenerative changes L5-S1 level. Beqp-bo-mlwvwirn canal stenosis at that level and moderate to severe foraminal narrowing. There is impingement upon the exiting L5 nerve roots which could explain bilateral radiculopathy. 2. Mild canal stenosis and phls-cx-zloliims bilateral foraminal narrowing L4-L5 level. 3. Canal and foramina are patent throughout the remainder of the lumbar spine. Lumbosacral spine xry: Degenerative disc disease at L5-S1 Discharge diagnosis: 1. Moderate focal degenerative changes L5-S1 2. Moderate to severe bilateral foraminal narrowing L4-L5 3. Intractable back pain with radiculopathy (likely due to impingement L5 nerveroot ) 4. Hypertension 5. CAD s/p stent placement 1 6. Hyperlipidemia 7. DM type II 8. vitamin D deficiency 9. Obesity Plan: Patient is admitted for intractable back pain Continue pain control with lidocaine patch/lortab as needed/flexiril Insulin per sliding scale, Resumed home meds Consulted PT/OT to eval -pending Consulted ortho for evaluation - recommended PT for heat, U/S and massage treatments, back brace, muscle relaxants and pain meds Plan of care was discussed with patient, voiced understanding Need MIESHA per PT recommendation Physical exam General appearance: Present: no acute distress - EENT Eyes: Present: EOM intact ENT: hearing intact - Neck Neck: Present: normal ROM - Respiratory Respiratory effort: normal Respiratory: bilateral: CTA - Cardiovascular Heart Sounds: Present: S1 & S2 - Extremities Extremities: no ischemia, No edema Peripheral Pulses: within normal limits - Abdominal General gastrointestinal: Present: non-tender, non-distended, other (obese) - Integumentary Integumentary: Present: warm, dry - Musculoskeletal Musculoskeletal: generalized weakness (b/l lower extremities) - Psychiatric Psychiatric: appropriate mood/affect - Neurologic Neurologic: limited lower extremities movement due to severe back pain Disposition: [id number] HOME UNDER HOME HL Time spent for discharge: 34 minutes Core Measure Documentation - Palliative Care Palliative Care/ Comfort Measures: Not Applicable - Core Measures Any of the following diagnoses?: none Exam - Constitutional Vitals: Temp Pulse Resp BP Pulse Ox 97.5 F L 69 20 156/66 96 11/05/18 07:41 11/05/18 09:27 11/05/18 09:29 11/05/18 09:27 11/05/18 08:16 Plan Activity: advance as tolerated Weight Bearing Status: Non-Weight Bearing Diet: low fat, diabetic Durable Medical Equipment Needed Upon Discharge: other (per PT recommendation) Additional Instructions: f/u with spine surgeon in one week Follow up with: PRIMARY CARE, [Primary Care Provider] - 3-5 Days Prescriptions: Cyclobenzaprine [Flexeril 10 MG TAB] 10 mg PO Q8H PRN #20 tablet PRN Reason: Muscle Spasm Lidocaine [Lidocare] 1 each TP DAILY PRN #14 adh..patch PRN Reason: Pain , Severe (7-10) Gabapentin [Neurontin] 600 mg PO Q8HR #30 capsule oxyCODONE /ACETAMINOPHEN [Percocet 5/325 mg] 1 tab PO Q4H PRN #14 tablet PRN Reason: Pain, Moderate (4-6)
--- NOTE | 2018-11-05 15:38 | Progress Note ---
Assessment and Plan 1. Moderate focal degenerative changes/paracentral superiorly directed disc extrusion L5-S1 2. Moderate to severe bilateral foraminal narrowing L4-L5 3. Intractable back pain with radiculopathy (likely due to impingement L5 nerveroot ) - Patient was admitted for intractable back pain - Continue pain control with lidocaine patch/lortab as needed/flexiril - Consulted ortho for evaluation - recommended PT for heat, U/S and massage treatments, back brace, muscle relaxants and pain meds. Consulted PT/OT to eval - need MIESHA or PT 4. Hypertension, stable 5. CAD s/p stent placement 1 - aspirin/statin 6. Hyperlipidemia, stayin 7. DM type II - Insulin per sliding scale, 8. vitamin D deficiency, replete 9. Obesity, res counselor when medically stable 10. bacteremia with gm neg rods (1 out of two) - possible source UTI - change abx to rocephin, repeat cx Disposition: when repeat blood cx negative Brief history: Patient is a 68-year-old female with PMHx of hypertension, CAD status post stent placement 1, hyperlipidemia, DM2, vitamin D deficiency and obesity who presents to the ER with complaints of severe back pain. Patient had a CT scan of the lumbar spine and the ER, which showed moderate focal changes L5 through S1 mild to moderate canal stenosis at that level and moderate to severe foraminal narrowing, there is impingement upon the existing L5 nerve roots. Patient was initially treated in the ER, she was admitted for additional evaluation, orthopedic/PT consulted for her back pain. PT recommended MIESHA but she unable to participate, no surgical intervention per ortho. Planned to d/c today but blood cx grew gm negative rods. Radiology: CT Lumber spine w/o contrast: 1. Moderate focal degenerative changes L5-S1 level. Vvgj-cz-kedxxdaa canal stenosis at that level and moderate to severe foraminal narrowing. There is impingement upon the exiting L5 nerve roots which could explain bilateral radiculopathy. 2. Mild canal stenosis and oubl-jp-igydacfv bilateral foraminal narrowing L4-L5 level. 3. Canal and foramina are patent throughout the remainder of the lumbar spine. Lumbosacral spine xry: Degenerative disc disease at L5-S1 MRI lumber spine: Right paracentral superiorly directed disc extrusion at L5-S1, lying posterior to the L5 vertebral body. This abuts several right-sided nerve roots within the central canal. Bilateral facet joint synovitis at L3-L4 and L4- L5 . Subjective Date of service: 11/05/18 Interval history: Patient seen and examined continue to c/o severe back pain and unable to move from bed PT recommended MIESHA but unable to participate Blood cx grew gm negative rods Objective - Exam Narrative Exam: General appearance: Present: no acute distress - EENT Eyes: Present: EOM intact ENT: hearing intact - Neck Neck: Present: normal ROM - Respiratory Respiratory effort: normal Respiratory: bilateral: CTA - Cardiovascular Heart Sounds: Present: S1 & S2 - Extremities Extremities: no ischemia, No edema Peripheral Pulses: within normal limits - Abdominal General gastrointestinal: Present: non-tender, non-distended, other (obese) - Integumentary Integumentary: Present: warm, dry - Musculoskeletal Musculoskeletal: generalized weakness (b/l lower extremities) - Psychiatric Psychiatric: appropriate mood/affect - Neurologic Neurologic: limited lower extremities movement due to severe back pain - Constitutional Vitals: Vital Signs - 12hr 11/05/18 11/05/18 11/05/18 07:41 08:16 08:29 Temperature 97.5 F L Pulse Rate 69 Respiratory 22 20 20 Rate Blood Pressure 156/66 O2 Sat by Pulse 96 96 Oximetry 11/05/18 11/05/18 11/05/18 09:26 09:27 09:29 Temperature Pulse Rate 69 69 Respiratory 20 Rate Blood Pressure 156/66 156/66 O2 Sat by Pulse Oximetry 11/05/18 11/05/18 11/05/18 13:32 13:33 13:36 Temperature Pulse Rate 74 66 67 Respiratory Rate Blood Pressure O2 Sat by Pulse 81 L 81 L 88 Oximetry 11/05/18 11/05/18 11/05/18 13:37 13:38 14:21 Temperature 98.8 F Pulse Rate 65 66 67 Respiratory 18 Rate Blood Pressure 161/67 O2 Sat by Pulse 92 92 95 Oximetry - Labs CBC & Chem 7: 11/05/18 15:57 11/05/18 15:57 Labs: Abnormal lab results 11/04/18 11/05/18 11/05/18 Range/Units 16:25 07:44 11:52 POC Glucose 61 L 131 H 154 H (70-105)
[2018-11-05 16:34] LABS: Hematocrit 32.6 % (30.3-42.9); Hemoglobin 10.8 gm/dl (10.1-14.3); Mean Corpuscular HGB Conc 33 % (30-34); Mean Corpuscular Volume 81 fl (79-97); Platelet Count 249 K/mm3 (140-440); Red Blood Count 4.04 M/mm3 (3.65-5.03); Red Cell Distribution Width 15.6 % (13.2-15.2)
[2018-11-05 17:07] LABS: BUN/Creatinine Ratio 19; Blood Urea Nitrogen 15 mg/dL (7-17); Calcium 9.8 mg/dL (8.4-10.2); Hemolysis Index 9
[2018-11-05] MEDS: LATANOPROST 0.005% OU SCH (19:00)
--- NOTE | 2018-11-05 19:15 | Magnetic Resonance Report ---
PROCEDURE: MR LUMBAR SPINE WO/W CON HISTORY: severe pain FINDINGS: MRI of the lumbar spine was performed using sagittal T1, sagittal T2, sagittal inversion re covery, axial T1, axial T2 and axial and sagittal postcontrast T1-weighted images obtained following intravenous administration of 17 cc MultiHance. These images demonstrate the conus medullaris lies at the level of L1 and appears unremarkable. At T12-L1, L1-L2 and L2-L3 there is loss of disc T2 signal intensity. There are no posterior disc abn ormalities. At L3-L4, there is loss of disc T2 signal intensity. There is minimal posterior disc bulge which does not result in canal stenosis or significant neural foraminal narrowing. There is mild bilateral face t hypertrophy. There is fluid in both facet joints at this level consistent with synovitis. At L4-L5 there is loss of disc T2 signal intensity. There is a posterior disc bulge resulting in mild bilateral neural foraminal narrowing without nerve root impingement. There is moderate facet hypertr ophy at this level. There is fluid in the facet joints bilaterally consistent with bilateral synoviti s. At L5-S1 there is loss of intervertebral disc space height. The disc is increased in T2 signal intens ity consistent with end-stage disc. There is a right paracentral superiorly directed disc extrusion, sagittal T2-weighted image 9, measuring 0.8 cm AP, 1.2 cm transverse and extending for 1.8 cm along t he long axis of the body. There is moderate bilateral neural foraminal narrowing with suspected mild impingement of exiting L5 nerve roots. IMPRESSION: Right paracentral superiorly directed disc extrusion at L5-S1, lying posterior to the L5 vertebral body. This abuts several right-sided nerve roots within the central canal Bilateral facet joint synovitis at L3-L4 and L4-L5 This document is electronically signed by Robert Tai MD., November 05 2018 07:13:36 PM ET
[2018-11-05] MEDS: MAXIPIME/NS 1 GM/100 ML 1 GM/100 ML BAG IV SCH (23:18)
[2018-11-06] MEDS: ZANAFLEX PO SCH ×3 (00:59→17:59)
[2018-11-06] MEDS: NEURONTIN PO SCH ×2 (07:26→18:15)
[2018-11-06] MEDS: HumaLOG SUB-Q SCH ×3 (07:35→16:30)
[2018-11-06] MEDS: MAXIPIME/NS 1 GM/100 ML 1 GM/100 ML BAG IV SCH ×2 (07:40→18:00)
[2018-11-06] MEDS: ZOSTRIX HP TP SCH ×3 (08:35→20:20)
[2018-11-06] MEDS: SODIUM CHLORIDE FLUSH SYRINGE 10 ML IV SCH (10:28)
[2018-11-06] MEDS: TIMOPTIC OS SCH (10:28)
[2018-11-06] MEDS: LIDODERM 5% TD SCH (10:30)
[2018-11-06] MEDS: NORVASC PO SCH (10:35)
[2018-11-06] MEDS: BABY ASPIRIN PO SCH (10:36)
[2018-11-06] MEDS: FLEXERIL PO PRN ×2 (10:37→20:37)
[2018-11-06] MEDS: COLACE PO SCH (10:37)
[2018-11-06] MEDS: COZAAR PO SCH (10:37)
[2018-11-06] MEDS: NORCO 5/325 PO PRN (10:38)
[2018-11-06] MEDS: GLUCOTROL PO SCH ×2 (11:15→18:02)
[2018-11-06] MEDS: GLUCOPHAGE PO SCH ×2 (11:16→18:15)
[2018-11-06] MEDS: CALCIUM CARBONATE PO SCH ×3 (11:18→20:20)
--- NOTE | 2018-11-06 12:48 | Progress Note ---
Assessment and Plan Assessment and plan: Patient is a 68 yo woman with a history of hypertension, CAD s/p stent placement x 1, dyslipidemia, DM type 2, vitamin D deficiency and obesity who presented to [facility] ED on 10/30/18 with severe low back pains. Patient had a CT scan of the lumbar spine and the ER, which showed moderate focal changes L5 through S1 mild to moderate canal stenosis at that level and moderate to severe foraminal narrowing, there is impingement upon the existing L5 nerve roots. Patient was initially treated in the ER, she was admitted for additional evaluation, orthopedic/PT consulted for her back pain. PT recommended MIESHA but she unable to participate, no surgical intervention per ortho. Planned to d/c yesterday by Dr. Bedoya but blood cx on 11/02/18 grew gm negative rods. * CT Lumber spine w/o contrast: 1. Moderate focal degenerative changes L5-S1 level. Rxaf-ii-hzqukwid canal stenosis at that level and moderate to severe foraminal narrowing. There is impingement upon the exiting L5 nerve roots which could explain bilateral radiculopathy. 2. Mild canal stenosis and feza-xh-wnegorpy bilateral foraminal narrowing L4-L5 level. 3. Canal and foramina are patent throughout the remainder of the lumbar spine. * Lumbosacral spine xry: Degenerative disc disease at L5-S1 * MRI lumber spine: Right paracentral superiorly directed disc extrusion at L5- S1, lying posterior to the L5 vertebral body. This abuts several right-sided nerve roots within the central canal. Bilateral facet joint synovitis at L3-L4 and L4-L5 . -Herniated disk L5-S1: pain management, Ortho did evaluate, unable to ambulate per PT notes -Sepsis, GNR bacteremia, ?diskitis, on 11/02/1807/14 bottle: consulted and discussed with ID, continue iv cefepime, await finalized of blood culture, i called micro lab, no answer -NIDDM type 2: continue ssi, accucheck and oral metformin -Hypertension, stable -CAD s/p stent placement 1: aspirin/statin -Hyperlipidemia, statin full code Disposition: continue inpatient care, 11/06/18: I called [place] transfer line because we do not have spinal surgeon and spoke with Glenna at 1302. Await call back. History Interval history: Patient was seen and examined. Follow-up on current diagnosis of LBP. Overnight uneventful. Patient denies any chest pain, shortness breath, nausea/vomiting or severe headaches. Imaging, nursing note, chart, labs and old chart reviewed. Discussed with patient. Hospitalist Physical - Physical exam Narrative exam: Gen: WDWN, NAD, Awake, Alert, Orientated HEENT: NCAT, EOMI, PERRL, OP Clear Neck: supple, no adenopathy, no thyromegaly, no JVD CVS/Heart: RRR, normal S1S2, pulses present bilaterally Chest/Lungs: CTA B, Symmetrical chest expansion, good air entry bilaterally GI/Abdomen: soft, NTND, good bowel sounds, no guarding or rebound /Bladder: no suprapubic tenderness, no CVA or paraspinal tenderness Extermity/Skin: no c/c/e, no obvious rash MSK: FROM x 3 Neuro: CN 2-12 grossly intact, +focal deficits lower ext. Psych: calm - Constitutional Vitals: Temp Pulse Resp BP Pulse Ox 97.9 F 62 20 151/63 94 11/06/18 07:21 11/06/18 07:21 11/06/18 07:21 11/06/18 07:21 11/06/18 07:21 General appearance: Present: no acute distress Results - Labs CBC & Chem 7: 11/05/18 15:57 11/05/18 15:57 Labs: Laboratory Last Values WBC 8.4 K/mm3 (4.5-11.0) 11/05/18 15:57 RBC 4.04 M/mm3 (3.65-5.03) 11/05/18 15:57 Hgb 10.8 gm/dl (10.1-14.3) 11/05/18 15:57 Hct 32.6 % (30.3-42.9) 11/05/18 15:57 MCV 81 fl (79-97) 11/05/18 15:57 MCH 27 pg (28-32) L 11/05/18 15:57 MCHC 33 % (30-34) 11/05/18 15:57 RDW 15.6 % (13.2-15.2) H 11/05/18 15:57 Plt Count 249 K/mm3 (140-440) 11/05/18 15:57 Lymph % (Auto) 9.5 % (13.4-35.0) L 10/31/18 01:15 Bradley % (Auto) 1.1 % (0.0-7.3) 10/31/18 01:15 Eos % (Auto) 0.0 % (0.0-4.3) 10/31/18 01:15 Baso % (Auto) 0.3 % (0.0-1.8) 10/31/18 01:15 Lymph # 0.8 K/mm3 (1.2-5.4) L 10/31/18 01:15 Bradley # 0.1 K/mm3 (0.0-0.8) 10/31/18 01:15 Eos # 0.0 K/mm3 (0.0-0.4) 10/31/18 01:15 Baso # 0.0 K/mm3 (0.0-0.1) 10/31/18 01:15 Seg Neutrophils % 89.1 % (40.0-70.0) H 10/31/18 01:15 Seg Neutrophils # 7.5 K/mm3 (1.8-7.7) 10/31/18 01:15 Sodium 143 mmol/L (137-145) 11/05/18 15:57 Potassium 4.6 mmol/L (3.6-5.0) 11/05/18 15:57 Chloride 104.8 mmol/L (98-107) 11/05/18 15:57 Carbon Dioxide 23 mmol/L (22-30) 11/05/18 15:57 Anion Gap 20 mmol/L 11/05/18 15:57 BUN 15 mg/dL (7-17) 11/05/18 15:57 Creatinine 0.8 mg/dL (0.7-1.2) 11/05/18 15:57 Estimated GFR > 60 ml/min 11/05/18 15:57 BUN/Creatinine Ratio 19 % 11/05/18 15:57 Glucose 165 mg/dL (65-100) H 11/05/18 15:57 POC Glucose 128 (70-105) H 11/06/18 11:50 Calcium 9.8 mg/dL (8.4-10.2) 11/05/18 15:57 Total Bilirubin 0.70 mg/dL (0.1-1.2) 10/31/18 01:15 AST 23 units/L (5-40) 10/31/18 01:15 ALT 15 units/L (7-56) 10/31/18 01:15 Alkaline Phosphatase 81 units/L (35-129) 10/31/18 01:15 Total Protein 8.2 g/dL (6.3-8.2) 10/31/18 01:15 Albumin 4.3 g/dL (3.9-5) 10/31/18 01:15 Albumin/Globulin Ratio 1.1 % 10/31/18 01:15 Urine Color Kayla (Yellow) 11/02/18 16:00 Urine Turbidity Slightly-cloudy (Clear) 11/02/18 16:00 Urine pH 5.0 (5.0-7.0) 11/02/18 16:00 Ur Specific [place] 1.039 (1.003-1.030) H 11/02/18 16:00 Urine Protein 100 mg/dl mg/dL (Negative) 11/02/18 16:00 Urine Glucose (UA) Neg mg/dL (Negative) 11/02/18 16:00 Urine Ketones Neg mg/dL (Negative) 11/02/18 16:00 Urine Blood Mod (Negative) 11/02/18 16:00 Urine Nitrite Neg (Negative) 11/02/18 16:00 Ur Reducing Substances Not Reportable 11/02/18 16:00 Urine Bilirubin Neg (Negative) 11/02/18 16:00 Urine Ictotest Not Reportable 11/02/18 16:00 Urine Urobilinogen < 2.0 mg/dL (<2.0) 11/02/18 16:00 Ur Leukocyte Esterase Neg (Negative) 11/02/18 16:00 Urine WBC (Auto) 7.0 /HPF (0.0-6.0) H 11/02/18 16:00 Urine RBC (Auto) 3.0 /HPF (0.0-6.0) 11/02/18 16:00 U Epithel Cells (Auto) 1.0 /HPF (0-13.0) 11/02/18 16:00 Urine Bacteria (Auto) 1+ /HPF (Negative) 11/02/18 16:00 Hyaline Casts 7 /LPF 10/31/18 05:30 Urine Mucus 1+ /HPF 11/02/18 16:00 Urine Yeast (Budding) 1+ /HPF 11/02/18 16:00 Urine Sperm Few /HPF (SNOW TECHNICIAN) 11/02/18 16:00 Active Medications - Current Medications Current Medications: Generic Name Dose Route Start Last Admin Trade Name Freq PRN Reason Stop Dose Admin Acetaminophen 650 mg 10/31/18 05:08 11/03/18 19:58 Tylenol PO 650 mg Q4H PRN Administration Pain MILD(1-3)/Fever >100.5/PENG Acetaminophen/Hydrocodone Bitart 2 each 11/01/18 16:34 11/06/18 10:38 [place] 5/325 PO 2 each Q6H PRN Administration Pain, Moderate (4-6) Amlodipine Besylate 10 mg 10/31/18 10:00 11/06/18 10:35 Norvasc PO 10 mg DAILY RU Administration Aspirin 81 mg 10/31/18 10:00 11/06/18 10:36 Baby Aspirin PO 81 mg DAILY RU Administration Atorvastatin Calcium 40 mg 10/31/18 22:00 11/05/18 22:40 Lipitor PO 40 mg QHS RU Administration Calcium Carbonate/Glycine 648 mg 10/31/18 08:00 11/06/18 11:18 Calcium Carbonate PO 648 mg TID RU Administration Capsaicin 1 applic 10/31/18 08:00 11/05/18 20:24 Zostrix Hp TP 1 applic TID RU Administration Cyclobenzaprine HCl 10 mg 10/31/18 16:31 11/06/18 10:37 Flexeril PO 10 mg Q8H PRN Administration Muscle Spasm Dextrose 50 ml 10/31/18 07:21 D50w (25gm) Syringe IV PRN PRN Hypoglycemia Docusate Sodium 100 mg 10/31/18 10:00 11/06/18 10:37 Colace PO 100 mg BID RU Administration Ergocalciferol 50,000 unit 11/19/18 10:00 Vitamin D2 PO QMONTH RU Gabapentin 600 mg 11/03/18 23:15 11/06/18 07:26 Neurontin PO 600 mg Q8HR RU Administration Glipizide 2.5 mg 10/31/18 08:15 11/06/18 11:15 Glucotrol PO 2.5 mg BIDDIAB RU Administration Cefepime HCl 1 gm in 100 mls @ 200 mls/hr 11/05/18 22:00 11/06/18 07:40 Maxipime/Ns 1 Gm/100 Ml IV 200 mls/hr Q8HR RU Administration Protocol Insulin Human Lispro 0 unit 10/31/18 07:30 11/05/18 23:37 Humalog SUB-Q 2 unit ACHS RU Administration Protocol Latanoprost 1 drops 10/31/18 18:00 11/05/18 19:00 Latanoprost 0.005% OU 1 drops QPM RU Administration Lidocaine 1 each 10/31/18 17:00 11/05/18 09:24 Lidoderm 5% TD 1 each QDAY RU Administration Losartan Potassium 100 mg 10/31/18 10:00 11/06/18 10:37 Cozaar PO 100 mg QDAY RU Administration Metformin HCl 500 mg 10/31/18 08:15 11/06/18 11:16 Glucophage PO 500 mg BIDDIAB RU Administration Nitroglycerin 0.4 mg 10/31/18 07:17 Nitrostat SL Q5M PRN Chest Pain Ondansetron HCl 4 mg 10/31/18 05:08 Zofran IV Q8H PRN Nausea And Vomiting Oxycodone/Acetaminophen 1 tab 11/02/18 14:03 11/05/18 23:03 Percocet 5/325 PO 1 tab Q4H PRN Administration Pain, Moderate (4-6) Sodium Chloride 10 ml 10/31/18 10:00 11/06/18 10:28 Sodium Chloride Flush Syringe 10 Ml IV 10 ml BID RU Administration Sodium Chloride 10 ml 10/31/18 05:08 11/03/18 16:36 Sodium Chloride Flush Syringe 10 Ml IV 10 ml PRN PRN Administration LINE FLUSH Timolol Maleate 1 drops 10/31/18 10:00 11/06/18 10:28 Timoptic OS 1 drops BID RU Administration Tizanidine HCl 8 mg 11/02/18 16:00 11/06/18 00:59 Zanaflex PO 8 mg Q8H RU Administration Nutrition/Malnutrition Assess - Dietary Evaluation Nutrition/Malnutrition Findings: Nutrition Notes Start: 11/05/18 17:02 Freq: Status: Active Protocol: Document 11/05/18 17:02 RM (Rec: 11/05/18 17:02 [id number]) Nutrition Notes Need for Assessment generated from: LOS Initial or Follow up Brief Note Height 5 ft 2 in Weight 89.811 kg [place] Body Weight (kg) 50.00 BMI 36.2 Subjective/Other Information Screened for LOS. Recorded PO intake 79% X 2 days. Nutrition Intervention Revisit per MD consult or patient Sign Off request:
[2018-11-06] MEDS: PERCOCET 5/325 PO PRN ×2 (16:00→21:01)
--- NOTE | 2018-11-06 17:27 | Discharge Summary ---
Providers - Providers Date of Admission: 10/31/18 06:13 Date of discharge: 11/06/18 Attending physician: DAE TOLBERT 10/31/18 05:38 Physical Therapy Evaluation and Treat [CONS] Routine Comment: Reason For Exam: pack pain, inability to ambulates Mode of Transport?: Wheelchair Weight bearing status?: Partial wt bearing Assistive devices?: Yes 10/31/18 05:41 Consult to Physician [CONS] Stat Comment: Spoke with Dr. Hines @ 0910 Consulting Provider: RODRIGUEZ HINES Physician Instructions: Reason For Exam: severe lumbar pain 11/06/18 12:49 Consult to Physician [CONS] Routine Comment: Consulting Provider: CODY LORENZO Physician Instructions: Reason For Exam: Fever and herniated disk, ?diskitis Primary care physician: SOFTWARE DEVELOPER Hospitalization Condition: Stable Hospital course: Patient is a 68 yo woman with a history of hypertension, CAD s/p stent placement x 1, dyslipidemia, DM type 2, vitamin D deficiency, obesity bmi 36.2 and s/p RONY, bladder tack with Mesh for prolapse on October 06, 2018 at [facility] who presented to [facility] ED on 10/30/18 with severe low back pains and inabil ity to ambulate. Patient had a CT scan of the lumbar spine in the ER, which showed moderate focal changes L5 through S1 mild to moderate canal stenosis at that level and moderate to severe foraminal narrowing, there is impingement upon the existing L5 nerve roots. Patient was initially treated in the ER but was admitted for pain control. She was seen by orthopedic/PT. PT recommended MIESHA but she unable to participate and no surgical intervention per Ortho but he is not a spine surgeon. Planned to d/c patient yesterday by Dr. Bedoya but blood cx on 11/02/18 grew gm negative rods 1/2 bottles and still no finalization. * CT Lumber spine w/o contrast: 1. Moderate focal degenerative changes L5-S1 level. Tejp-wn-nlewaofr canal stenosis at that level and moderate to severe foraminal narrowing. There is impingement upon the exiting L5 nerve roots which could explain bilateral radiculopathy. 2. Mild canal stenosis and zufd-vw-hvxrbbzt bilateral foraminal narrowing L4-L5 level. 3. Canal and fo ramina are patent throughout the remainder of the lumbar spine. * Lumbosacral spine xry: Degenerative disc disease at L5-S1 * MRI lumber spine: Right paracentral superiorly directed disc extrusion at L5- S1, lying posterior to the L5 vertebral body. This abuts several right-sided nerve roots within the central canal. Bilateral facet joint synovitis at L3-L4 and L4-L5 . -Herniated disk L5-S1: pain management, Ortho did evaluate, unable to ambulate per PT notes -Sepsis, GNR bacteremia, ?diskitis, on 11/02/18 1/ bottle: consulted and discussed with ID, continue iv cefepime, await finalized of blood culture, I called micro lab -NIDDM type 2: continue ssi, accucheck and oral metformin -Hypertension, stable -CAD s/p stent placement 1: aspirin/statin -Hyperlipidemia, statin full code Disposition: D/C to [facility] for Neurosurgery evaluation. Why patient can't ambulate? 11/06/18: I called [place] transfer line because we do not have spinal surgeon or Neurosurgeon and spoke with Glenna at 1302. Await call back. Addendum entered and electronically signed by DAE TOLBERT MD 11/06/18 13:39: [facility] called me back and said that since patient is self pay then Utilization review will be done on Thursday. I told Glenna that patient has [employer] Medicare per case management notes. Addendum entered and electronically signed by DAE TOLBERT MD 11/06/18 14:12: Ortho spine, Dr. Rose called me back, unable to accept at her facility, recommend sending to [facility] or [facility]. They will call me back again Addendum entered and electronically signed by DAE TOLBERT MD 11/06/18 14:30: They call me back, Hospitalist Dr. Walsh. Did the entire case again. Then the Hospitalist, Dr. Walsh want Neurosurgery to speak with me prior to accepting. They will call me back again and I will have to present the case the 4th time. Addendum entered and electronically signed by DAE TOLBERT MD 11/06/18 16:57: Alisa from transfer center called me back with NILDA Gamboa (sp); Case discussed with Neurosurgeon. It appears he doesn't want to accept this transfer. He made a comment that "i will get back to you" and became irate when I told him I am trying to do the best for my patient and we don't have Neurosurgery (NSY). I asked him to clarify his statement, "I will get back to you." Addendum entered and electronically signed by DAE TOLBERT MD 11/06/18 17:11: Alisa called me back and says they will accept patient to [facility] under Dr. Walsh Disposition: [id number]/TX-70 ANOTHER TYPE HLTHCARE Time spent for discharge: 38 minutes Core Measure Documentation - Palliative Care Palliative Care/ Comfort Measures: Not Applicable - Core Measures Any of the following diagnoses?: none - VTE Discharge Requirements Deep Vein Thrombosis/Pulmonary Embolism Present on Admission: No Has pt received <5 days of overlap therapy or INR<2.0: No Anticoagulant overlap therapy prescribed at discharge: No Contraindication No Overlap Therapy order at DC: Not Indicated Exam - Physical Exam Narrative exam: Gen: WDWN, NAD, Awake, Alert, Orientated HEENT: NCAT, EOMI, PERRL, OP Clear Neck: supple, no adenopathy, no thyromegaly, no JVD CVS/Heart: RRR, normal S1S2, pulses present bilaterally Chest/Lungs: CTA B, Symmetrical chest expansion, good air entry bilaterally GI/Abdomen: soft, NTND, good bowel sounds, no guarding or rebound /Bladder: no suprapubic tenderness, no CVA or paraspinal tenderness Extermity/Skin: no c/c/e, no obvious rash MSK: FROM x 3 Neuro: CN 2-12 grossly intact, +focal deficits lower ext. Psych: calm - Constitutional Vitals: Temp Pulse Resp BP Pulse Ox 98.3 F 67 20 124/65 91 11/06/18 15:29 11/06/18 15:29 11/06/18 15:29 11/06/18 15:29 11/06/18 15:29 Plan Activity: other (no strenous activity) Diet: low salt, diabetic Follow up with: PRIMARY CARE, [Primary Care Provider] - 3-5 Days Prescriptions: Cyclobenzaprine [Flexeril 10 MG TAB] 10 mg PO Q8H PRN #20 tablet PRN Reason: Muscle Spasm Lidocaine [Lidocare] 1 each TP DAILY PRN #14 adh..patch PRN Reason: Pain , Severe (7-10) Gabapentin [Neurontin] 600 mg PO Q8HR #30 capsule oxyCODONE /ACETAMINOPHEN [Percocet 5/325 mg] 1 tab PO Q4H PRN #14 tablet PRN Reason: Pain, Moderate (4-6)
[2018-11-06] MEDS: LATANOPROST 0.005% OU SCH (18:02)
[2018-11-06 19:14] VITALS: BP 113/59
[2018-11-19] MEDS ORDERED: VITAMIN D2 PO SCH (10:00)
== END 2018-11-06 21:15 | disposition short-term general hospital (02) | DRG 551 ==
LOC: ED 18:11 → 4A 10-31 06:13 → 2B-ACE 10-31 21:29
PROVIDERS: ADMIT Internal Medicine; ATTEND Internal Medicine
DX: M51.17 Intervertebral disc disorders with radiculopathy, lumbosacral region (principal); A41.9 Sepsis, unspecified organism; N39.0 Urinary tract infection, site not specified; I10 Essential (primary) hypertension; I25.10 Atherosclerotic heart disease of native coronary artery without angina pectoris; E66.9 Obesity, unspecified; M48.07 Spinal stenosis, lumbosacral region; E11.9 Type 2 diabetes mellitus without complications; E78.5 Hyperlipidemia, unspecified; M51.27 Other intervertebral disc displacement, lumbosacral region; E55.9 Vitamin D deficiency, unspecified; M51.36 Other intervertebral disc degeneration, lumbar region; E11.40 Type 2 diabetes mellitus with diabetic neuropathy, unspecified; Z95.5 Presence of coronary angioplasty implant and graft; Z68.36 Body mass index [BMI] 36.0-36.9, adult; Z90.710 Acquired absence of both cervix and uterus; Z79.82 Long term (current) use of aspirin; Z79.899 Other long term (current) drug therapy; M46.40 Discitis, unspecified, site unspecified
CPT/HCPCS: 36415; 72100; 72131; 72158; 80048; 80053; 81001; 82962; 85025; 85027; 85652; 86140; 87040; 87086; 87116; G0378; A9270-GY; A9577; J0692; J0696; J1100; J1200; J1815; J1885; J1956; J2270; J2405